=== PATIENT | male | born 1935 | race Caucasian/White ===

== ENCOUNTER 2017-03-21 12:29 | Inpatient (IN) | payer MEDICARE, OTHER ==
[~2017-03-21] VITALS: Ht 180.3 cm; Wt 93.8 kg
[2017-03-21 13:06] LABS: BASOPHILS % (AUTO) 0.5 % (0.0-5.0); EOSINOPHILS % (AUTO) 2.2 % (0.0-8.0); HEMATOCRIT 40.6 % (42-54); LYMPHOCYTES % (AUTO) 14.7 % (21.0-51.0); MEAN CORPUSCULAR HEMOGLOBIN 30.4 pg (27.0-33.0); MEAN CORPUSCULAR HGB CONC 32.5 g/dL (32.0-36.0); MEAN CORPUSCULAR VOLUME 93.6 fL (79-99); MONOCYTES % (AUTO) 8.7 % (3.0-13.0); NEUTROPHILS % (AUTO) 73.9 % (40.0-77.0); PLATELET COUNT (AUTO) 194 K/uL (130-400); RED BLOOD CELL COUNT(AUTO) 4.33 MIL/uL (4.50-6.20); WHITE BLOOD COUNT (AUTO) 5.4 K/uL (4.8-10.8)
[2017-03-21 13:15] LABS: CREATININE 1.8 mg/dL (0.5-1.5); POTASSIUM 3.6 mmol/L (3.5-5.1)
[2017-03-21 13:17] LABS: INR 1.01 (0.85-1.15); PARTIAL THROMBOPLASTIN TIME 26.4 SEC (26.3-35.5); PROTHROMBIN TIME 10.6 SEC (9.6-11.6)
[2017-03-21 13:29] LABS: ALBUMIN 2.8 g/dL (3.5-5.0); BILIRUBIN,TOTAL 5.4 mg/dL (0.2-1.0); TOTAL PROTEIN, SERUM 6.8 g/dL (6.0-8.3)
[2017-03-21 13:51] LABS: APPEARANCE,URINE Turbid (CLEAR); BILIRUBIN,URINE Moderate (NEGATIVE); COLOR,URINE Dark Yellow (YELLOW); GLUCOSE, URINE (UA) TRACE mg/dL (NEGATIVE); KETONES,URINE Negative (NEGATIVE); LEUKOCYTE ESTERASE ,URINE Small (NEGATIVE); NITRATE,URINE Negative (NEGATIVE); OCCULT BLOOD,URINE Negative (NEGATIVE); PROTEIN,URINE POS 1+ (NEGATIVE)
[2017-03-21 14:02] LABS: BACTERIA,URINE Rare /HPF (None Seen); MUCUS,URINE Rare LPF (None Seen); RBC,URINE None Seen /HPF (0-1); SQUAMOUS EPITHELIAL CELL,UR Rare /LPF (0-2); WBC,URINE 0-1 /HPF (0-1)
[2017-03-21] MEDS ORDERED: MAG HYDROX/AL HYDROX/SIMETH ES 30 ML SUSP UDCUP PO PRN (15:15)
[2017-03-21] MEDS ORDERED: MORPHINE SULFATE 2 MG/ML 1ML SYG IV PRN (15:15)
[2017-03-21] MEDS ORDERED: LACTULOSE 20 GM/30 ML UDCUP PO PRN (15:15)
[2017-03-21] MEDS ORDERED: ONDANSETRON HCL 4 MG/2 ML VIAL IV PRN (15:15)
[2017-03-21] MEDS ORDERED: GUAIFENESIN-DM 200/20 MG 10 ML PO PRN (15:15)
[2017-03-22 06:05] LABS: HEMATOCRIT 38.3 % (42-54); MEAN CORPUSCULAR HEMOGLOBIN 31.4 pg (27.0-33.0); MEAN CORPUSCULAR HGB CONC 33.8 g/dL (32.0-36.0); MEAN CORPUSCULAR VOLUME 93.1 fL (79-99); PLATELET COUNT (AUTO) 174 K/uL (130-400); RED BLOOD CELL COUNT(AUTO) 4.11 MIL/uL (4.50-6.20); RED CELL DISTRIBUTION WIDTH 14.7 % (11.0-15.5); WHITE BLOOD COUNT (AUTO) 5.5 K/uL (4.8-10.8)
[2017-03-22 06:35] LABS: ALBUMIN 2.6 g/dL (3.5-5.0); BILIRUBIN,TOTAL 2.9 mg/dL (0.2-1.0); CREATININE 1.5 mg/dL (0.5-1.5); POTASSIUM 3.4 mmol/L (3.5-5.1); TOTAL PROTEIN, SERUM 6.3 g/dL (6.0-8.3)
[2017-03-22] MEDS: PANTOPRAZOLE SODIUM 40 MG TABLET.DR PO SCH (09:00)
[2017-03-22] MEDS ORDERED: LEVOFLOXACIN 500 MG/D5W 100 ML 100 ML ONE (11:21)
[2017-03-22] MEDS ORDERED: MORPHINE SULFATE 4 MG/1ML SYG IV PRN (13:45)
[2017-03-22] MEDS ORDERED: ACETAMINOPHEN 325 MG TAB PO PRN ×2 (13:45)
[2017-03-22] MEDS ORDERED: POTASSIUM CHLORIDE 10% ELIXIR 20 MEQ/15 ML UDCUP PO PRN (13:45)
[2017-03-22] MEDS ORDERED: ACETAMINOPHEN-CODEINE 300/30MG TAB PO PRN ×2 (13:45)
[2017-03-22] MEDS ORDERED: MAG HYDROX/AL HYDROX/SIMETH ES 30 ML SUSP UDCUP PO PRN (13:45)
[2017-03-22] MEDS ORDERED: MORPHINE SULFATE 2 MG/ML 1ML SYG IV PRN (13:45)
[2017-03-22] MEDS ORDERED: LIDOCAINE HCL-MPF 1% 2ML VIAL IVP PRN (13:45)
[2017-03-22] MEDS ORDERED: POTASSIUM CHLORIDE 20MEQ/100ML 100 ML IV PRN (13:45)
[2017-03-22] MEDS ORDERED: LACTULOSE 20 GM/30 ML UDCUP PO PRN (13:45)
[2017-03-22] MEDS ORDERED: NITROGLYCERIN 0.4 MG SL TAB SL PRN (13:45)
[2017-03-22] MEDS ORDERED: CEFTRIAXONE 1GM/D5W 50ML 50 ML IV SCH (13:45)
[2017-03-22] MEDS ORDERED: ONDANSETRON HCL 4 MG/2 ML VIAL IV PRN (13:45)
[2017-03-22] MEDS ORDERED: GUAIFENESIN-DM 200/20 MG 10 ML PO PRN (13:45)
[2017-03-22] MEDS ORDERED: HYDRALAZINE HCL 20 MG/ML VIAL IV PRN (13:45)
[2017-03-22] MEDS: CEFTRIAXONE SODIUM 1 GM IVP SCH (14:00)
[2017-03-22] MEDS ORDERED: KETAMINE HCL 100 MG/ML 5ML VIAL IJ ONE (14:27)
[2017-03-22] MEDS ORDERED: MIDAZOLAM HCL 1 MG/ML 2ML VIAL ONE (14:32)
[2017-03-22 14:35] VITALS: BP 175/96
[2017-03-22] MEDS ORDERED: GLYCOPYRROLATE 0.2 MG/ML 5 ML VIAL ONE (14:49)
[2017-03-22] MEDS ORDERED: CEFTRIAXONE SODIUM 1 GM ONE (15:45)
[2017-03-22] MEDS ORDERED: SODIUM CHLORIDE 0.9% 50 ML IV ONE (15:45)
[2017-03-22] MEDS: INSULIN HUMULIN R 100 UNIT/ML 3ML SQ SCH ×2 (16:30→20:29)
[2017-03-22] MEDS ORDERED: CARV25TA PO (18:32)
[2017-03-22] MEDS ORDERED: CHOL200013 PO (18:32)
[2017-03-22] MEDS ORDERED: ISOS60TA4 PO (18:32)
[2017-03-22] MEDS ORDERED: INSU100V SQ (18:32)
[2017-03-22] MEDS ORDERED: INSLAN SQ (18:32)
[2017-03-22] MEDS ORDERED: FURO20TA4 PO (18:32)
[2017-03-22] MEDS ORDERED: HYDR-3420 PO (18:32)
[2017-03-22] MEDS ORDERED: ASPI-555 PO (18:32)
[2017-03-22] MEDS ORDERED: ATOR10 PO (18:32)
[2017-03-22] MEDS ORDERED: ALLO100T PO (18:32)
[2017-03-22 18:34] VITALS: BP 133/72
[2017-03-22 20:00] VITALS: BP 152/77
[2017-03-22] MEDS ORDERED: CARVEDILOL 3.125 MG TABLET PO SCH (21:00)
[2017-03-22 23:15] LABS: APPEARANCE,URINE Clear (CLEAR); BILIRUBIN,URINE Negative (NEGATIVE); COLOR,URINE Dark Yellow (YELLOW); GLUCOSE, URINE (UA) 250 mg/dL (NEGATIVE); KETONES,URINE Negative (NEGATIVE); LEUKOCYTE ESTERASE ,URINE Trace (NEGATIVE); NITRATE,URINE Negative (NEGATIVE); OCCULT BLOOD,URINE Negative (NEGATIVE); PH,URINE 6.5 (5.0-8.0); PROTEIN,URINE POS 1+ (NEGATIVE); UROBILINOGEN,URINE 0.2 mg/dL (0.2-1.0)
[2017-03-22 23:32] LABS: BACTERIA,URINE Moderate /HPF (None Seen); MUCUS,URINE Few LPF (None Seen); SQUAMOUS EPITHELIAL CELL,UR Few /LPF (0-2); WBC,URINE Full Field /HPF (0-1)
[2017-03-22 23:35] VITALS: BP 117/65
[2017-03-23 03:35] VITALS: BP 145/73
[2017-03-23 04:10] LABS: HEMATOCRIT 38.4 % (42-54); MEAN CORPUSCULAR HEMOGLOBIN 31.3 pg (27.0-33.0); MEAN CORPUSCULAR HGB CONC 33.3 g/dL (32.0-36.0); PLATELET COUNT (AUTO) 186 K/uL (130-400); RED BLOOD CELL COUNT(AUTO) 4.09 MIL/uL (4.50-6.20); WHITE BLOOD COUNT (AUTO) 5.5 K/uL (4.8-10.8)
[2017-03-23 04:25] LABS: CREATININE 1.5 mg/dL (0.5-1.5); MAGNESIUM 1.9 mg/dL (1.80-2.40); PHOSPHORUS 2.7 mg/dL (2.5-4.9); POTASSIUM 3.5 mmol/L (3.5-5.1)
[2017-03-23 05:18] LABS: HEPATITIS A ANTIBODY IGM Negative (Negative); HEPATITIS B CORE IGM Negative (Negative); HEPATITIS Bs ANTIGEN SCREEN P Negative (Negative)
[2017-03-23] MEDS: POTASSIUM CHLORIDE 20 MEQ ERTAB PO PRN ×2 (05:56→18:35)
[2017-03-23] MEDS: INSULIN HUMULIN R 100 UNIT/ML 3ML SQ SCH ×4 (06:28→21:33)
[2017-03-23 07:56] VITALS: BP 150/90
[2017-03-23] MEDS: ASPIRIN 81 MG EC TAB PO SCH (08:23)
[2017-03-23] MEDS: PANTOPRAZOLE SODIUM 40 MG TABLET.DR PO SCH (08:23)
[2017-03-23] MEDS: FOLIC ACID/VITAMIN B COMP W-C 1 MG CAPSULE PO SCH (08:23)
[2017-03-23] MEDS: CARVEDILOL 25 MG TABLET PO SCH ×2 (08:24→21:16)
[2017-03-23] MEDS: HYDRALAZINE HCL 10 MG TABLET PO SCH ×3 (08:26→21:17)
[2017-03-23] MEDS: **HM** VIT D3 2000 UNITS PO SCH ×2 (08:26→21:00)
[2017-03-23] MEDS ORDERED: FUROSEMIDE 20 MG TABLET PO SCH (09:00)
[2017-03-23 11:23] VITALS: BP 149/76
[2017-03-23] MEDS: ALLOPURINOL 100 MG TABLET PO SCH (12:08)
[2017-03-23] MEDS: ISOSORBIDE MONO 60 MG TAB.SR PO SCH (12:08)
[2017-03-23] MEDS: CEFTRIAXONE SODIUM 1 GM IVP SCH (14:52)
[2017-03-23 16:01] VITALS: BP 129/80
[2017-03-23] MEDS: FUROSEMIDE 20 MG TABLET PO SCH (17:42)
[2017-03-23 19:30] VITALS: BP 149/91
[2017-03-23] MEDS: ATORVASTATIN CALCIUM 10 MG TABLET PO SCH (21:17)
[2017-03-23 23:20] VITALS: BP 124/77
[2017-03-24 03:20] VITALS: BP 127/69
[2017-03-24 06:16] LABS: HEMATOCRIT 39.2 % (42-54); MEAN CORPUSCULAR HEMOGLOBIN 31.1 pg (27.0-33.0); MEAN CORPUSCULAR HGB CONC 33.5 g/dL (32.0-36.0); MEAN CORPUSCULAR VOLUME 92.8 fL (79-99); PLATELET COUNT (AUTO) 227 K/uL (130-400); RED BLOOD CELL COUNT(AUTO) 4.23 MIL/uL (4.50-6.20); RED CELL DISTRIBUTION WIDTH 14.7 % (11.0-15.5); WHITE BLOOD COUNT (AUTO) 5.8 K/uL (4.8-10.8)
[2017-03-24 06:27] LABS: ALBUMIN 2.9 g/dL (3.5-5.0); CREATININE 1.7 mg/dL (0.5-1.5); POTASSIUM 3.7 mmol/L (3.5-5.1); TOTAL PROTEIN, SERUM 6.8 g/dL (6.0-8.3)
[2017-03-24] MEDS: INSULIN HUMULIN R 100 UNIT/ML 3ML SQ SCH ×4 (06:36→21:55)
[2017-03-24] MEDS: CARVEDILOL 25 MG TABLET PO SCH ×2 (08:14→21:47)
[2017-03-24] MEDS: ASPIRIN 81 MG EC TAB PO SCH (08:14)
[2017-03-24] MEDS: HYDRALAZINE HCL 10 MG TABLET PO SCH ×3 (08:14→21:48)
[2017-03-24] MEDS: FOLIC ACID/VITAMIN B COMP W-C 1 MG CAPSULE PO SCH (08:15)
[2017-03-24] MEDS: PANTOPRAZOLE SODIUM 40 MG TABLET.DR PO SCH (08:15)
[2017-03-24] MEDS: **HM** VIT D3 2000 UNITS PO SCH ×2 (08:15→21:00)
[2017-03-24 09:20] VITALS: BP 156/86
[2017-03-24] MEDS ORDERED: ISOVUE-370 50ML VIAL IV ONE (09:45)
[2017-03-24 11:42] VITALS: BP 159/85
[2017-03-24] MEDS: ISOSORBIDE MONO 60 MG TAB.SR PO SCH (12:29)
[2017-03-24] MEDS: ALLOPURINOL 100 MG TABLET PO SCH (12:29)
[2017-03-24] MEDS: CEFTRIAXONE SODIUM 1 GM IVP SCH (14:06)
[2017-03-24 16:18] VITALS: BP 162/91
[2017-03-24] MEDS: FUROSEMIDE 20 MG TABLET PO SCH (16:42)
[2017-03-24 20:00] VITALS: BP 145/81
[2017-03-24] MEDS: ATORVASTATIN CALCIUM 10 MG TABLET PO SCH (21:47)
[2017-03-25] VITALS: BP 143/69
[2017-03-25 04:00] VITALS: BP 149/75
[2017-03-25] MEDS: INSULIN HUMULIN R 100 UNIT/ML 3ML SQ SCH ×4 (06:31→20:59)
[2017-03-25 06:42] LABS: CREATININE 1.5 mg/dL (0.5-1.5); POTASSIUM 3.6 mmol/L (3.5-5.1)
[2017-03-25 07:00] VITALS: BP 131/77
[2017-03-25] MEDS: FOLIC ACID/VITAMIN B COMP W-C 1 MG CAPSULE PO SCH (08:53)
[2017-03-25] MEDS: HYDRALAZINE HCL 10 MG TABLET PO SCH ×3 (08:53→20:48)
[2017-03-25] MEDS: **HM** VIT D3 2000 UNITS PO SCH ×2 (08:54→20:55)
[2017-03-25] MEDS: PANTOPRAZOLE SODIUM 40 MG TABLET.DR PO SCH (08:54)
[2017-03-25] MEDS: CARVEDILOL 25 MG TABLET PO SCH ×2 (08:54→20:49)
[2017-03-25 11:00] VITALS: BP 132/72
[2017-03-25] MEDS: ALLOPURINOL 100 MG TABLET PO SCH (12:20)
[2017-03-25] MEDS: ISOSORBIDE MONO 60 MG TAB.SR PO SCH (12:20)
[2017-03-25] MEDS: CEFTRIAXONE SODIUM 1 GM IVP SCH (14:32)
[2017-03-25 15:44] VITALS: BP 140/71
[2017-03-25] MEDS: FUROSEMIDE 20 MG TABLET PO SCH (17:07)
[2017-03-25 19:00] VITALS: BP 149/83
[2017-03-25] MEDS: ATORVASTATIN CALCIUM 10 MG TABLET PO SCH (20:47)
[2017-03-26] VITALS (25 sets, daily range): BP systolic 128–170; BP diastolic 63–82
[2017-03-26] MEDS: INSULIN HUMULIN R 100 UNIT/ML 3ML SQ SCH ×4 (06:01→22:10)
[2017-03-26 07:26] LABS: INR 1.05 (0.85-1.15); PARTIAL THROMBOPLASTIN TIME 27.1 SEC (26.3-35.5)
[2017-03-26 07:27] LABS: ALBUMIN 2.9 g/dL (3.5-5.0); BILIRUBIN,TOTAL 1.6 mg/dL (0.2-1.0); CREATININE 1.7 mg/dL (0.5-1.5); POTASSIUM 3.5 mmol/L (3.5-5.1); TOTAL PROTEIN, SERUM 6.6 g/dL (6.0-8.3)
[2017-03-26 07:53] LABS: MEAN CORPUSCULAR HEMOGLOBIN 30.7 pg (27.0-33.0); MEAN CORPUSCULAR HGB CONC 33.3 g/dL (32.0-36.0); MEAN CORPUSCULAR VOLUME 92.4 fL (79-99); PLATELET COUNT (AUTO) 215 K/uL (130-400); RED BLOOD CELL COUNT(AUTO) 4.22 MIL/uL (4.50-6.20); RED CELL DISTRIBUTION WIDTH 14.6 % (11.0-15.5); WHITE BLOOD COUNT (AUTO) 7.9 K/uL (4.8-10.8)
[2017-03-26 08:18] LABS: EOSINOPHILS % (MANUAL) 1 % (1-6); LYMPHOCYTES % (MANUAL) 13 % (22-44); MAN.DIFF COMMENT-IMPRESSION MANUAL DIFFERENTIAL; MONOCYTES % (MANUAL) 3 % (2-9); PLATELET MORPHOLOGY COMMENT ADEQUATE; REACTIVE LYMPHOCYTES 3 % (0-0); SEGMENTED NEUTROPHILS % 80 % (40-70)
[2017-03-26] MEDS: FOLIC ACID/VITAMIN B COMP W-C 1 MG CAPSULE PO SCH (09:00)
[2017-03-26] MEDS: **HM** VIT D3 2000 UNITS PO SCH ×2 (09:00→21:00)
[2017-03-26] MEDS: HYDRALAZINE HCL 10 MG TABLET PO SCH ×3 (09:00→21:23)
[2017-03-26] MEDS: PANTOPRAZOLE SODIUM 40 MG TABLET.DR PO SCH (09:00)
[2017-03-26] MEDS: CARVEDILOL 25 MG TABLET PO SCH ×2 (10:34→21:24)
[2017-03-26] MEDS: ALLOPURINOL 100 MG TABLET PO SCH (12:00)
[2017-03-26] MEDS: ISOSORBIDE MONO 60 MG TAB.SR PO SCH (12:00)
[2017-03-26] MEDS ORDERED: ISOVUE-370 50ML VIAL IV ONE (12:37)
[2017-03-26] MEDS ORDERED: MIDAZOLAM HCL 1 MG/ML 2ML VIAL ONE (13:08)
[2017-03-26] MEDS ORDERED: INDOMETHACIN 50 MG SUPP.RECT RC SCH (13:45)
[2017-03-26] MEDS: CEFTRIAXONE SODIUM 1 GM IVP SCH (14:18)
[2017-03-26] MEDS: FUROSEMIDE 20 MG TABLET PO SCH (16:08)
[2017-03-26] MEDS: POTASSIUM CHLORIDE 20 MEQ ERTAB PO PRN (18:45)
[2017-03-26] MEDS: ATORVASTATIN CALCIUM 10 MG TABLET PO SCH (21:23)
[2017-03-27 04:24] VITALS: BP 145/70
[2017-03-27 04:40] LABS: CREATININE 1.6 mg/dL (0.5-1.5); POTASSIUM 3.9 mmol/L (3.5-5.1)
[2017-03-27 04:41] LABS: HEMATOCRIT 39.4 % (42-54); MEAN CORPUSCULAR HEMOGLOBIN 30.5 pg (27.0-33.0); MEAN CORPUSCULAR HGB CONC 32.7 g/dL (32.0-36.0); MEAN CORPUSCULAR VOLUME 93.2 fL (79-99); PLATELET COUNT (AUTO) 233 K/uL (130-400); RED BLOOD CELL COUNT(AUTO) 4.23 MIL/uL (4.50-6.20); RED CELL DISTRIBUTION WIDTH 14.9 % (11.0-15.5); WHITE BLOOD COUNT (AUTO) 8.8 K/uL (4.8-10.8)
[2017-03-27] MEDS: INSULIN HUMULIN R 100 UNIT/ML 3ML SQ SCH ×4 (06:15→21:54)
[2017-03-27 08:00] VITALS: BP 129/76
[2017-03-27] MEDS: **HM** VIT D3 2000 UNITS PO SCH ×2 (09:00→21:00)
[2017-03-27] MEDS: HYDRALAZINE HCL 10 MG TABLET PO SCH ×3 (09:50→21:49)
[2017-03-27] MEDS: FOLIC ACID/VITAMIN B COMP W-C 1 MG CAPSULE PO SCH (09:50)
[2017-03-27] MEDS: CARVEDILOL 25 MG TABLET PO SCH ×2 (09:51→21:51)
[2017-03-27] MEDS: PANTOPRAZOLE SODIUM 40 MG TABLET.DR PO SCH (09:52)
[2017-03-27 11:44] VITALS: BP 121/66
[2017-03-27] MEDS: ALLOPURINOL 100 MG TABLET PO SCH (13:05)
[2017-03-27] MEDS: CEFTRIAXONE SODIUM 1 GM IVP SCH (13:06)
[2017-03-27] MEDS: ISOSORBIDE MONO 60 MG TAB.SR PO SCH (13:07)
[2017-03-27 16:00] VITALS: BP 148/74
[2017-03-27] MEDS: FUROSEMIDE 20 MG TABLET PO SCH (17:38)
[2017-03-27 19:35] VITALS: BP 154/80
[2017-03-27] MEDS: ATORVASTATIN CALCIUM 10 MG TABLET PO SCH (21:49)
[2017-03-27 23:45] VITALS: BP 124/69
[2017-03-28 03:50] VITALS: BP 148/71
[2017-03-28 04:44] LABS: ALBUMIN 2.7 g/dL (3.5-5.0); BILIRUBIN,TOTAL 1.2 mg/dL (0.2-1.0); CREATININE 1.6 mg/dL (0.5-1.5); POTASSIUM 3.4 mmol/L (3.5-5.1); TOTAL PROTEIN, SERUM 6.2 g/dL (6.0-8.3)
[2017-03-28] MEDS: INSULIN HUMULIN R 100 UNIT/ML 3ML SQ SCH ×3 (05:54→17:02)
[2017-03-28] MEDS: POTASSIUM CHLORIDE 20 MEQ ERTAB PO PRN ×3 (05:59→13:04)
[2017-03-28 07:00] VITALS: BP 138/74
[2017-03-28] MEDS: **HM** VIT D3 2000 UNITS PO SCH (09:00)
[2017-03-28] MEDS ORDERED: ASPIRIN 81MG TAB.CHEW PO SCH (09:00)
[2017-03-28] MEDS: FOLIC ACID/VITAMIN B COMP W-C 1 MG CAPSULE PO SCH (10:11)
[2017-03-28] MEDS: CARVEDILOL 25 MG TABLET PO SCH (10:12)
[2017-03-28] MEDS: HYDRALAZINE HCL 10 MG TABLET PO SCH ×2 (10:12→13:13)
[2017-03-28] MEDS: PANTOPRAZOLE SODIUM 40 MG TABLET.DR PO SCH (10:13)
[2017-03-28 11:08] VITALS: BP 135/72
[2017-03-28] MEDS: CEFTRIAXONE SODIUM 1 GM IVP SCH (13:05)
[2017-03-28] MEDS: ISOSORBIDE MONO 60 MG TAB.SR PO SCH (13:06)
[2017-03-28] MEDS: ALLOPURINOL 100 MG TABLET PO SCH (13:10)
[2017-03-28] MEDS ORDERED: MAGNESIUM 2GM PREMIX 50ML 50 ML IV SCH (13:30)
[2017-03-28 15:00] VITALS: BP 119/73
[2017-03-28] MEDS: FUROSEMIDE 20 MG TABLET PO SCH (16:56)
== END 2017-03-28 19:51 | disposition home or self-care (01) | DRG 445 ==
LOC: EDH 12:29 → OBSVTOIN 15:11 → EDHIP 15:11 → 3CH 03-22 17:59
PROVIDERS: ADMIT Family Medicine; ATTEND Family Medicine
PROC: 0DJ08ZZ Inspection of Upper Intestinal Tract, Via Natural or Artificial Opening Endoscopic (ICD-10-PCS; principal; 2017-03-22)
PROC: 0FC98ZZ Extirpation of Matter from Common Bile Duct, Via Natural or Artificial Opening Endoscopic (ICD-10-PCS; 2017-03-26)
PROC: 0F998ZZ Drainage of Common Bile Duct, Via Natural or Artificial Opening Endoscopic (ICD-10-PCS; 2017-03-26)
DX: K80.50 Calculus of bile duct without cholangitis or cholecystitis without obstruction (principal); N17.9 Acute kidney failure, unspecified; E11.51 Type 2 diabetes mellitus with diabetic peripheral angiopathy without gangrene; E11.21 Type 2 diabetes mellitus with diabetic nephropathy; C67.9 Malignant neoplasm of bladder, unspecified; I13.0 Hypertensive heart and chronic kidney disease with heart failure and stage 1 through stage 4 chronic kidney disease, or unspecified chronic kidney disease; I50.9 Heart failure, unspecified; K72.90 Hepatic failure, unspecified without coma; E44.1 Mild protein-calorie malnutrition; D64.9 Anemia, unspecified; B19.20 Unspecified viral hepatitis C without hepatic coma; E11.22 Type 2 diabetes mellitus with diabetic chronic kidney disease; I25.5 Ischemic cardiomyopathy; I49.9 Cardiac arrhythmia, unspecified; I25.10 Atherosclerotic heart disease of native coronary artery without angina pectoris; N18.3 Chronic kidney disease, stage 3 (moderate); I25.2 Old myocardial infarction; Z79.4 Long term (current) use of insulin; G47.33 Obstructive sleep apnea (adult) (pediatric); I89.0 Lymphedema, not elsewhere classified; E78.5 Hyperlipidemia, unspecified; F03.90 Unspecified dementia, unspecified severity, without behavioral disturbance, psychotic disturbance, mood disturbance, and anxiety; L29.9 Pruritus, unspecified; R74.0 Nonspecific elevation of levels of transaminase and lactic acid dehydrogenase [LDH]; Z95.1 Presence of aortocoronary bypass graft; Z95.810 Presence of automatic (implantable) cardiac defibrillator; Z88.8 Allergy status to other drugs, medicaments and biological substances; Z87.891 Personal history of nicotine dependence; Z87.442 Personal history of urinary calculi; Z86.73 Personal history of transient ischemic attack (TIA), and cerebral infarction without residual deficits; Z79.899 Other long term (current) drug therapy; Z95.5 Presence of coronary angioplasty implant and graft; Z80.0 Family history of malignant neoplasm of digestive organs; Z68.28 Body mass index [BMI] 28.0-28.9, adult
CPT/HCPCS: 36415; 43231; 71010; 74330; 76705; 80048; 80053; 80074; 81001; 82948; 83690; 83735; 83935; 84100; 84550; 85025; 85027; 85610; 85730; 93306; A4218; C1769; C1773; J0360; J0696; J1815; J1956; J2250; J3475; J3490; Q9967